=== PATIENT | female | born 1995 | race African-American/Black ===

== ENCOUNTER 2021-03-06 16:58 | Emergency (ER) | payer OTHER ==
--- NOTE | 2021-03-06 18:11 | Emergency Department Report ---
ED HPI - General Chief complaint: Vaginal Bleeding Stated complaint: 13WKS BLEEDING Time Seen by Provider: 03/06/21 17:49 Source: patient Mode of arrival: Ambulatory Limitations: No Limitations - History of Present Illness Initial comments: Patient is a 25-year-old female presents emergency room with complaints of vaginal spotting that began 5 days ago. she states one day it was a brighter red blood and then it started to turn brown in coloration and now the bleeding has improved. She states that she is approximately 13 weeks . She states that she spoke to the clinic that she is staying for this and that she was advised to come to the emergency room for an ultrasound. She states that she has been having some back pain. She denies any abdominal pain, urinary symptoms, fever, vomiting. Patient denies any past medical history. No allergies to medications. She states this is her first . - Related Data Allergies Allergy/AdvReac Type Severity Reaction Status Date / Time No Known Allergies Allergy Verified 03/06/21 17:47 ED Review of Systems ROS: Stated complaint: 13WKS BLEEDING Other details as noted in HPI Comment: All other systems reviewed and negative ED Physical Exam - General Limitations: No Limitations General appearance: alert, in no apparent distress - Head Head exam: Present: atraumatic, normocephalic - Eye Eye exam: Present: normal appearance - ENT ENT exam: Present: mucous membranes moist - Respiratory Respiratory exam: Present: normal lung sounds bilaterally. Absent: respiratory distress, wheezes, rales, rhonchi, stridor, chest wall tenderness, accessory muscle use, decreased breath sounds, prolonged expiratory - Cardiovascular Cardiovascular Exam: Present: regular rate, normal rhythm, normal heart sounds. Absent: systolic murmur, diastolic murmur, rubs, gallop - GI/Abdominal GI/Abdominal exam: Present: soft, normal bowel sounds. Absent: distended, tenderness, guarding, rebound, rigid - Neurological Exam Neurological exam: Present: alert, oriented X3 - Psychiatric Psychiatric exam: Present: normal affect, normal mood - Skin Skin exam: Present: warm, dry, intact ED Course Vital Signs 03/06/21 03/06/21 17:47 20:52 Temperature 98.6 F Pulse Rate 92 H 82 Respiratory 16 18 Rate Blood Pressure 114/65 Blood Pressure 116/86 [Left] O2 Sat by Pulse 100 100 Oximetry ED Medical Decision Making - Lab Data Result diagrams: 03/06/21 17:58 03/06/21 17:58 Lab Results 03/06/21 03/06/21 03/06/21 Range/Units 17:50 17:58 17:58 WBC 10.3 (4.5-11.0) K/mm3 RBC 4.76 (3.65-5.03) M/mm3 Hgb 15.0 H (10.1-14.3) gm/dl Hct 44.1 H (30.3-42.9) % MCV 93 (79-97) fl MCH 32 (28-32) pg MCHC 34 (30-34) % RDW 13.6 (13.2-15.2) % Plt Count 204 (140-440) K/mm3 Lymph % (Auto) 17.0 (13.4-35.0) % Douglas % (Auto) 7.3 (0.0-7.3) % Eos % (Auto) 0.8 (0.0-4.3) % Baso % (Auto) 0.5 (0.0-1.8) % Lymph # (Auto) 1.8 (1.2-5.4) K/mm3 Douglas # (Auto) 0.8 (0.0-0.8) K/mm3 Eos # (Auto) 0.1 (0.0-0.4) K/mm3 Baso # (Auto) 0.1 (0.0-0.1) K/mm3 Seg Neutrophils % 74.4 H (40.0-70.0) % Seg Neutrophils # 7.7 (1.8-7.7) K/mm3 Sodium 137 (137-145) mmol/L Potassium 4.3 (3.6-5.0) mmol/L Chloride 97.4 L (98-107) mmol/L Carbon Dioxide 23 (22-30) mmol/L Anion Gap 21 mmol/L BUN 6 L (7-17) mg/dL Creatinine 0.3 L (0.6-1.2) mg/dL Estimated GFR > 60 ml/min BUN/Creatinine Ratio 20 % Glucose 75 (65-100) mg/dL Calcium 9.3 (8.4-10.2) mg/dL Total Bilirubin 0.20 (0.1-1.2) mg/dL AST 19 (5-40) units/L ALT 12 (7-56) units/L Alkaline Phosphatase 62 (35-129) units/L Total Protein 8.4 H (6.3-8.2) g/dL Albumin 4.8 (3.9-5) g/dL Albumin/Globulin Ratio 1.3 % HCG, Quant (0-4) mIU/mL Urine Color Straw (Yellow) Urine Turbidity Clear (Clear) Urine pH 7.0 (5.0-7.0) Ur Specific [place] 1.005 (1.003-1.030) Urine Protein <15 mg/dl (Negative) mg/dL Urine Glucose (UA) Neg (Negative) mg/dL Urine Ketones 20 (Negative) mg/dL Urine Blood Neg (Negative) Urine Nitrite Neg (Negative) Urine Bilirubin Neg (Negative) Urine Urobilinogen < 2.0 (<2.0) mg/dL Ur Leukocyte Esterase Neg (Negative) Urine WBC (Auto) < 1.0 (0.0-6.0) /HPF Urine RBC (Auto) 2.0 (0.0-6.0) /HPF U Epithel Cells (Auto) 1.0 (0-13.0) /HPF Blood Type 03/06/21 03/06/21 Range/Units 17:58 17:58 WBC (4.5-11.0) K/mm3 RBC (3.65-5.03) M/mm3 Hgb (10.1-14.3) gm/dl Hct (30.3-42.9) % MCV (79-97) fl MCH (28-32) pg MCHC (30-34) % RDW (13.2-15.2) % Plt Count (140-440) K/mm3 Lymph % (Auto) (13.4-35.0) % Douglas % (Auto) (0.0-7.3) % Eos % (Auto) (0.0-4.3) % Baso % (Auto) (0.0-1.8) % Lymph # (Auto) (1.2-5.4) K/mm3 Douglas # (Auto) (0.0-0.8) K/mm3 Eos # (Auto) (0.0-0.4) K/mm3 Baso # (Auto) (0.0-0.1) K/mm3 Seg Neutrophils % (40.0-70.0) % Seg Neutrophils # (1.8-7.7) K/mm3 Sodium (137-145) mmol/L Potassium (3.6-5.0) mmol/L Chloride (98-107) mmol/L Carbon Dioxide (22-30) mmol/L Anion Gap mmol/L BUN (7-17) mg/dL Creatinine (0.6-1.2) mg/dL Estimated GFR ml/min BUN/Creatinine Ratio % Glucose (65-100) mg/dL Calcium (8.4-10.2) mg/dL Total Bilirubin (0.1-1.2) mg/dL AST (5-40) units/L ALT (7-56) units/L Alkaline Phosphatase (35-129) units/L Total Protein (6.3-8.2) g/dL Albumin (3.9-5) g/dL Albumin/Globulin Ratio % HCG, Quant 502122 H (0-4) mIU/mL Urine Color (Yellow) Urine Turbidity (Clear) Urine pH (5.0-7.0) Ur Specific [place] (1.003-1.030) Urine Protein (Negative) mg/dL Urine Glucose (UA) (Negative) mg/dL Urine Ketones (Negative) mg/dL Urine Blood (Negative) Urine Nitrite (Negative) Urine Bilirubin (Negative) Urine Urobilinogen (<2.0) mg/dL Ur Leukocyte Esterase (Negative) Urine WBC (Auto) (0.0-6.0) /HPF Urine RBC (Auto) (0.0-6.0) /HPF U Epithel Cells (Auto) (0-13.0) /HPF Blood Type O POSITIVE - Radiology Data Radiology results: report reviewed Ordering Physician: MARSHA BRYAN Date of Service: 03/06/21 Procedure(s): US OB <= 14 weeks fetus Accession Number(s): [id number] cc: MARSHA BRYAN ULTRASOUND OBSTETRIC INDICATION / CLINICAL INFORMATION: , bleeding. Clinical Gestational Age (GA): 13.6 weeks.days TECHNIQUE: Transabdominal. COMPARISON: None available. FINDINGS: GESTATIONAL SAC: Well-defined oval shape and intrauterine in location. YOLK SAC: No significant abnormality. EMBRYO/FETUS: No significant abnormality. - [place]-Rump Length = 6.0 cm = 12.4 weeks.days - Heart Rate, beats per minute (if present) = 152 ADNEXA: No significant abnormality. FREE FLUID: None. ADDITIONAL FINDINGS: None. IMPRESSION: 1. Single, living intrauterine with estimated sonographic age of 12.4 weeks.days. Signer Name: Satish Albarado MD Signed: 03/06/2021 7:29 PM Workstation Name: [id number] Transcribed By: TO Dictated By: Satish Albarado MD Electronically Authenticated By: Satish Albarado MD Signed Date/Time: 03/06/211928 DD/ 27 TD/TT: - Medical Decision Making Patient is a 25-year-old female presents emergency room with complaints of vaginal spotting that began 5 days ago. she states one day it was a brighter red blood and then it started to turn brown in coloration and now the bleeding has improved. She states that she is approximately 13 weeks . She states that she spoke to the clinic that she is staying for this and that she was advised to come to the emergency room for an ultrasound. She states that she has been having some back pain. She denies any abdominal pain, urinary symptoms, fever, vomiting. Patient denies any past medical history. No allergies to medications. She states this is her first . Vitals are normal. No abdominal tenderness on exam. Labs are stable. Patient is Rh+. UA within normal limits. OB ultrasound 1. Single, living intrauterine with estimated sonographic age of 12.4 weeks.days. Discussed all results with patient and answered questions. Discussed the importance of close INSURANCE PROCESSOR follow-up. Discussed return precautions. Advised patient Please practice pelvic rest. Increase your water intake. May take Tylenol as needed for any pain. Follow-up with your INSURANCE PROCESSOR for close follow-up. Return to emergency room for any new or worsening symptoms. Critical care attestation.: If time is entered above; I have spent that time in minutes in the direct care of this critically ill patient, excluding procedure time. ED Disposition Clinical Impression: Vaginal spotting Qualifiers: Weeks of gestation: 12 weeks Qualified Code(s): Z3A.12 - 12 weeks gestation of Disposition: 01 HOME / SELF CARE / HOMELESS Is pt being admited?: No Does the pt Need Aspirin: No Condition: Stable Instructions: Vaginal Bleeding During , Second Trimester Additional Instructions: Please practice pelvic rest. Increase your water intake. May take Tylenol as needed for any pain. Follow-up with your INSURANCE PROCESSOR for close follow-up. Return to emergency room for any new or worsening symptoms. Referrals: your, corporation officer [Other] - 2-3 Days Time of Disposition: 20:28 Print Language: SLOVENIAN
[2021-03-06 18:28] LABS: Basophils # (Auto) 0.1 K/mm3 (0.0-0.1); Basophils % (Auto) 0.5 % (0.0-1.8); Eosinophils # (Auto) 0.1 K/mm3 (0.0-0.4); Eosinophils % (Auto) 0.8 % (0.0-4.3); Hematocrit 44.1 % (30.3-42.9); Lymphocytes # (Auto) 1.8 K/mm3 (1.2-5.4); Mean Corpuscular HGB Conc 34 % (30-34); Mean Corpuscular Volume 93 fl (79-97); Monocytes # (Auto) 0.8 K/mm3 (0.0-0.8); Monocytes % (Auto) 7.3 % (0.0-7.3); Platelet Count 204 K/mm3 (140-440); Red Blood Count 4.76 M/mm3 (3.65-5.03); Red Cell Distribution Width 13.6 % (13.2-15.2)
[2021-03-06 18:34] LABS: Alanine Aminotransferase 12 units/L (7-56); Albumin 4.8 g/dL (3.9-5); Blood Urea Nitrogen 6 mg/dL (7-17); Calcium 9.3 mg/dL (8.4-10.2); Hemolysis Index 28
[2021-03-06 18:38] LABS: BUN/Creatinine Ratio 20
--- NOTE | 2021-03-06 19:34 | Ultrasound Report ---
ULTRASOUND OBSTETRIC INDICATION / CLINICAL INFORMATION: , bleeding. Clinical Gestational Age (GA): 13.6 weeks.days TECHNIQUE: Transabdominal. COMPARISON: None available. FINDINGS: GESTATIONAL SAC: Well-defined oval shape and intrauterine in location. YOLK SAC: No significant abnormality. EMBRYO/FETUS: No significant abnormality. - [place]-Rump Length = 6.0 cm = 12.4 weeks.days - Heart Rate, beats per minute (if present) = 152 ADNEXA: No significant abnormality. FREE FLUID: None. ADDITIONAL FINDINGS: None. IMPRESSION: 1. Single, living intrauterine with estimated sonographic age of 12.4 weeks.days. Signer Name: Satish Albarado MD Signed: 03/06/2021 7:29 PM Workstation Name: [id number]
[2021-03-06 20:13] LABS: Bilirubin,Urine NEG (Negative); Blood,Urine NEG (Negative); Color,Urine Straw (Yellow); Protein,Urine <15 mg/dL mg/dL (Negative); Urobilinogen,Urine < 2.0 mg/dL (<2.0); WBC,Urine < 1.0 /HPF (0.0-6.0)
[2021-03-06 20:53] VITALS: BP 116/86
== END 2021-03-06 20:53 | disposition home or self-care (01) ==
LOC: ED 16:58
DX: O26.851 Spotting complicating pregnancy, first trimester (principal); Z3A.12 12 weeks gestation of pregnancy
CPT/HCPCS: 36415; 76801; 80053; 81001; 84702; 85025; 86900; 86901